=== PATIENT | female | born 1955 | race Caucasian/White ===

== ENCOUNTER 2025-09-05 18:30 | Emergency (ER) | payer OTHER, SELFPAY ==
[2025-09-05 18:33] VITALS: BP 195/91
[2025-09-05 18:55] LABS: Hematocrit 36.7 % (37.0-47.0); Hemoglobin 12.2 g/dL (12.0-16.0); Mean Corp Hgb Conc. 33.2 g/dL (33.0-37.0); Mean Corpuscular Volume 92.7 fL (81.0-99.0); Nucleated Red Blood Cells % 0 %; Platelet Count 226 10^3/uL (130-400); Red Cell Dist. Width 12.8 % (11.5-14.5)
[2025-09-05 19:09] LABS: ALT (SGPT) 18 U/L (0-35); AST (SGOT) 25 U/L (14-36); Albumin 4.5 g/dl (3.5-5.0); Alkaline Phosphatase 73 U/L (38-126); Blood Urea Nitrogen 16 mg/dl (7-17); Calcium 9.5 mg/dl (8.4-10.2); Carbon Dioxide 25 mmol/L (22-30); Chloride 104 mmol/L (98-107); Glucose 97 mg/dl (70-99); Potassium 4.5 mmol/L (3.5-5.1); Sodium 136 mmol/L (135-145); Total Protein 7.3 g/dl (6.3-8.2); eGFR > 60.00
[2025-09-05 19:17] LABS: Troponin I < 0.012 ng/ml
[2025-09-05 20:39] VITALS: BP 176/87
[2025-09-05 20:45] VITALS: BMI 27.6
[2025-09-05 21:00] VITALS: BP 189/87
--- NOTE | 2025-09-05 21:48 | ED.CVA ---
History of Present Illness
General
Chief Complaint: CVA/TIA Symptoms
Time Seen by Provider: 09/05/25 20:59
Onset of Stroke Symptoms
Onset of symptoms known: Yes
Date of onset of symptoms: 09/06/25
Time of onset of symptoms: 18:00
History of Present Illness
History of Present Illness:
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
this evening around 6 PM. Patient became nervous and close her eyes, but the visual disturbance continued, even with her eyes closed. Patient proceeded to perform 'Reiki maneuver', with spontaneous resolution of her symptoms within minutes.
Around the same time period, patient started to experience chest tightness in the middle of her chest, which lasted approximately 30 minutes. Chest pain nonradiating, without any alleviating or exacerbating factors. Denies previous history of
chest pain. However, patient does report that she is under heavy stress at work, and has not been sleeping well at nighttime recently. Denies back pain. Denies leg pain or swelling. Denies recent illness. Denies family history of heart disease.
Denies family history of blood clots. Patient does not smoke or drink. At the time of evaluation ED, patient is without any symptoms.
Past History
Past History
ED Past Medical History: GERD
ED Past Surgical History: Gynecological (Breast biopsy at age 17)
Social History
Tobacco: Non-smoker
Alcohol: None
Living: with family
Employment: Employed
Family History
Family History: CAD (Mother had an GA at age 65); Negative Early CAD
Review of Systems
Review of Systems
Allergies reviewed?: Yes
All Other Systems: ROS reviewed and negative except as documented in HPI and ROS
Constitutional: Reports no symptoms
Respiratory: Reports no symptoms; Denies trouble breathing
Cardiac: Reports chest pain; Denies palpitations
ABD/GI: Reports no symptoms; Denies vomiting or diarrhea
Musculoskeletal: Reports no symptoms
Skin: Reports no symptoms
Neurological: Reports other (visual disturbance); Denies headache
Phy Exam
Physical Exam
Physical Exam:
Physical Exam
General: no apparent distress, not acutely ill. afebrile
Head: nc/at. eomi
Neck: supple. normal range of motion.
Heart: s1/s2 regular rate and rhythm
Lungs: no acute respiratory distress. clear bilaterally
Abdomen: normal bowel sounds. not tender.
Neuro: alert and oriented x 3. no focal neurological deficits. normal speech
Skin: no rash
Psychiatric: well kept. interactive and cooperative
Extremities: no edema. no calf tenderness
Course
Orders/Labs/Results
Orders:
Orders
09/05/25 18:31
EKG [Electrocardiogram (*1)] Urgent
Reason for Study: Chest Pain
EKG- Treatment ONCE
09/05/25 18:[address] [CT Head W/o Iv Contrast] Urgent
Comment:
Reason For Exam: vision changes
09/05/25 18:43
Complete Blood Count/With Diff Urgent
Comprehensive Metabolic Panel Urgent
Troponin I Urgent
Abnormal Lab Results
09/05/25
18:43
RBC 3.96 L 10^6/uL
(4.20-5.40)
Hct 36.7 L %
(37.0-47.0)
09/05/25 18:43
09/05/25 18:43
Vital Signs
Initial and Last Documented VS:
Initial Vital Signs
Temp Pulse Resp BP Pulse Ox
97.9 F 82 20 195/91 99
09/05/25 18:33 09/05/25 18:33 09/05/25 18:33 09/05/25 18:33 09/05/25 18:33
Last Documented Vital Signs
Temp Pulse Resp BP Pulse Ox
97.9 F 73 14 177/81 98
09/05/25 18:33 09/05/25 22:00 09/05/25 22:00 09/05/25 22:00 09/05/25 22:00
MDM/Problems Addressed
MDM/Problems Addressed:
Patient with an unremarkable workup in ED, including blood work and CT head. History and exam concerning for potential retinal involvement, i.e. retinal detachment. However, episode was very brief with spontaneous vision, without recurrent
symptoms. As such, I believe it is reasonable for patient to be seen as an outpatient by ophthalmology on an urgent basis. In addition, in light of patient's brief chest pain, although nonspecific, without any cardiac risk factors, recommended
outpatient evaluation with cardiology. Patient states that she prefers to see Dr. NING Chavez, who was her parents autographer. Return precautions provided.
*Pulse Oximetry
SaO2: 96
Oxygen Mode of Delivery: Room air
Patient hypoxic: no
*Critical Care Note
Total Time (30-74mins, 75-104mins- exclusive of procedures): Not Applicable
ED Attending Note
-
Portions of this chart may have been created with voice recognition software.� Occasional wrong word or��sound alike� substitutions may have occurred due to the inherent limitations of voice recognition software.
Discharge Plan
Departure
Patient Disposition: Home (Routine Discharge)
Date of Disposition: 09/05/25
Time of Disposition: 21:48
Patient with high blood pressure during this ER visit?: Yes
Condition: Fair
Discharge Problem:
Visual disturbance, Chest pain
Instructions: Chest pain (DC)
Prescriptions:
No Action
No Current Medications
0
Referrals:
Danielle Calzada MD [Active, Ophthalmology]
German Chavez MD [Active, Cardiology]
Activity Restrictions/Additional Instructions:
As discussed, please follow-up with referred by cna hha and autographer for further evaluation and treatment. Please return to ED with worsening symptoms.
Interventions
Interventions:
*General Assessment Last Done: 09/05/25 18:33
*Neglect/Abuse Screening Last Done: 09/05/25 18:33
*ED COVID-19 Vaccine History Last Done: 09/05/25 18:33
*ED Influenza Vaccine History Last Done: 09/05/25 18:33
[facility] Fall Risk Assessment Tool Last Done: 09/05/25 20:46
*Risk Screen - Suicide (C-SSRS) Last Done: 09/05/25 18:33
*Nursing Disposition Last Done: 09/05/25 22:08
ED- Pulmonary Assessment Last Done: 09/05/25 20:47
ED- Neurological Assessment Last Done: 09/05/25 20:47
ED- Cardiac Assessment Last Done: 09/05/25 20:47
ED Swallowing Screen Last Done: 09/05/25 20:56
Discharge Date and Time
Discharge Date/Time: 09/05/25 22:13
Print Language: [id number]
[2025-09-05 22:00] VITALS: BP 177/81
== END 2025-09-05 22:13 | disposition home or self-care (01) ==
LOC: EMR 18:30
PROVIDERS: Emergency Medicine; EMERGENCY PHYSICIAN Emergency Medicine; FAMILY PHYSICIAN Family Medicine
DX: H53.9 Unspecified visual disturbance (principal); R07.9 Chest pain, unspecified; Z56.6 Other physical and mental strain related to work
CPT/HCPCS: 99284; 70450; 80053; 84484; 85025; 93005

== ENCOUNTER → 2025-09-20 07:00 | Outpatient (REF) | payer OTHER, SELFPAY | LOC: RCS 07:00 | PROVIDERS: ATTENDING PHYSICIAN Internal Medicine Cardiovascular Disease; FAMILY PHYSICIAN Family Medicine | DX: R01.1 Cardiac murmur, unspecified (principal) | CPT/HCPCS: 93306 ==